=== PATIENT | female | born 1960 | race American Indian/Alaskan Native ===

== ENCOUNTER 2020-11-14 10:47 | Outpatient (CLI) | payer OTHER ==
--- NOTE | 2020-11-14 12:08 | XRay Report ---
XR spine lumbosacral 2-3V HISTORY: PAIN COMPARISON: None. TECHNIQUE: 3 view(s) of the lumbar spine obtained. FINDINGS: Vertebrae: Normal alignment. Vertebral body heights are preserved. Spondylosis:Decreased intervertebral disc space with endplate spurring seen the lower lumbar spine. M ild L3-L4 and L4-5 facet arthropathy. Additional findings: 4 cm calcified fibroid in the pelvis. IMPRESSION: 1. No acute findings. Mild spondylosis. Signer Name: Wang Mata MD Signed: 11/14/2020 12:03 PM Workstation Name: [id number]
--- NOTE | 2020-11-14 12:16 | XRay Report ---
XR knee BILAT 1-2V INDICATION / CLINICAL INFORMATION: PAIN. COMPARISON: None available. FINDINGS: No acute fracture. Normal alignment. Right medial compartment osteoarthritic change with bulky oste ophytes in the patellofemoral compartment. More mild osteoarthritic changes of the left knee. No dest ructive osseous lesion or suspicious periosteal reaction. Impression: 1.Advanced right and mild left knee osteoarthritis. Signer Name: Wang Mata MD Signed: 11/14/2020 12:12 PM Workstation Name: [email or web address]
== END 2020-11-14 10:48 | disposition home or self-care (01) ==
LOC: XRAY 10:47
PROVIDERS: ATTEND Internal Medicine
DX: M17.0 Bilateral primary osteoarthritis of knee (principal); M47.816 Spondylosis without myelopathy or radiculopathy, lumbar region; D25.9 Leiomyoma of uterus, unspecified
CPT/HCPCS: 72100